=== PATIENT | male | born 1970 | race Caucasian/White ===

== ENCOUNTER 2025-02-20 09:55 | Outpatient (AMB) | payer OTHER, SELFPAY ==
--- OUTSIDE RECORDS SUMMARY | 2025-02-20 11:12 | XMS_ITS | Encounter Summary ---
Author Organization [facility] Address [address] [place] [address] Care Team Providers Care Animal Shelter Clerk Name Role Phone Aaron Hamilton MD Primary Care Provider Ari Aguillon MD Unavailable Zion Isbell MD Unavailable [phone] Zion Isbell MD Unavailable [phone] Encounter Details Date Type Department Care Team (Late st Contact Info) Description 09/25/2021 Scanned Document [address] [address] Social History Tobacco Use Types Packs/Day Years Used Date Smoking Tobacco: Never Smokeless Tobacco: Never Sex and Gender Information Value Date Recorded Sex Assigned at Not on file Legal Sex Male 4:37 AM EDT Gender Identity Not on file Sexual Orientation Not on file COVID-19 Exposure Response Date Recorded In the last month, have you been in contact with someone who was confirmed or suspected to have Coronavirus / COVID-19? No / Unsure 09/10/2021 8:14 AM EDT documented as of this encounter Plan of Treatment Not on file documented as of this encounter Visit Diagnoses Not on filedocumented in this encounter Care Teams Animal Shelter Clerk Relationship Specialty Start Date End Date Aaron Hamilton MD [address] [place] [address] PCP - General 09/04/21 Ari Aguillon MD [address] [place] [address] Cardiovascular Disease 12/14/21 Zion Isbell MD [address] [address] Cardiovascular Disease 03/10/22 Zion Isbell MD [address] [address] Primary Door Fitter Cardiovascular Disease 08/11/23 documented as of this encounter
--- OUTSIDE RECORDS SUMMARY | 2025-02-20 11:12 | XMS_ITS | Clinical Summary ---
Author Organization [address] [place] [address] [place] [phone] Phone Care Team Providers Care After School Program Assistant Name Role Phone [place] Dudley MD Primary Care Provider [phone] Allergies Active Allergy Reactions Criticality Noted Date Comments Gluten Nausea And Vomiting,Nausea Only Low 03/02/2024 Positive celiac dx Comment on above: Positive celiac dx Positive celiac dx Medications albuterol HFA (PROVENTIL HFA;VENTOLIN HFA) 108 (90 Base) MCG/ACT inhaler Inhale 2 puffs into the lungs 2 (two) times a day as needed. Active LORazepam (ATIVAN) 0.5 mg tablet Take 1 tablet (0.5 mg total) by mouth every 8 (eight) hours as needed. Active montelukast (SINGULAIR) 10 mg tablet Take 1 tablet (10 mg total) by mouth daily. Active multivitamin (MULTIPLE VITAMINS ORAL) Take 1 tablet by mouth daily. Active Active Problems Problem Noted Date Diagnosed Date Atrial fibrillation (CMS/HCC V24, CMS/[facility] V28) 0 03/02/2024 Celiac disease 03/02/2024 Heart palpitations 03/02/2024 Obesity 03/02/2024 Sleep apnea 03/02/2024 Immunizations Name Administration Dates Next Due SARS-COV-2 (COVID-19) Vaccine, Unspecified 12/16,11/18/2020 Surgical History Surgery Date Site/Laterality Comments ATRIAL ABLATION SURGERY 2021 PROCEDURE:ATRIAL ABLATION SURGERY NASAL POLYP SURGERY PROCEDURE:NASAL POLYP SURGERY Medical History Medical History Date Comments A-fib (CMS/HCC V24, [facility] V28) DX:A-fib ([facility]) Allergic DX:Allergic Asthma DX:Asthma EtOH dependence ([facility] V24 , [facility] V28) 06/20/2012 DX:EtOH dependence ([facility]);COM MENT:quit cold turkey Celiac disease DX:Celiac diseas e Social History Tobacco Use Types Packs/Day Years Used Date Smoking Tobacco: Never Smokeless Tobacco: Never Alcohol Use Standard Drinks/Week Comments Not Currently 0 (1 standard drink = 0.6 oz pur e alcohol) Sex and Gender Information Value Date Recorded Sex Assigned at Not on file Legal Sex Male 8:44 AM EST Gender Identity Not on file Sexual Orientation Not on file Obstetrics History Last Filed Vital Signs Vital Sign Reading Time Taken Comments Blood Pressure 122/94 10/25/2024 10:28 AM EDT Pulse 75 10/25/2024 10:28 AM EDT Temperature 35.7 C (96.3 F) 10/25/2024 10:28 AM EDT Respiratory Rate - - Oxygen Saturation 98% 10/25/2024 10:28 AM EDT Inhaled Oxygen Concentration - - Weight 116 kg (255 lb 9.6 oz) 10/25/2024 10:28 A M EDT Height 175.3 cm (5' 9 ) 02/29/2024 10:07 AM EDT Body Mass Index 37.75 02/29/2024 10:07 AM EDT Plan of Treatment Upcoming Encounters Date Type Department Care Team (Late st Contact Info) Description 03/06/2025 3:30 PM EDT Office Visit [address] [id number] [place] Dudley MD [address] [place] [address] Health Maintenance Due Date Last Done Comments DTaP,Tdap,and Td Vaccines (1 - Tdap) 1991 Hepatitis B Vaccines (1 of 3 - 19+ 3-dose series) 1991 Pneumococcal Vaccine: 50+ Years (1 of 1 - PCV) 2022 Zoster Vaccines (1 of 2) 2022 HIV Screening 03/02/2024 Social Influencers of Health Screening 03/02/2024 Depression Screening 06/20/2024 Colorectal Cancer Screening: Stool Based Tests (FOBT/FIT) 02/12/2025 02/13/2024, 02/13/2024 COVID-19 Vaccine (3 - 2024-2 6 season) 2025 12/16/2020, 11/18/2020 Influenza Vaccine (#1) 2025 Cholesterol Screening (Lipid Panel) 02/15/2029 02/16/2024, 02/14/2024 Hepatitis C Screening Completed 02/16/2024 , 02/14/2024 HIB Vaccines Aged Out No longer eligi ble based on patient's age to complete this topic HPV Vaccines Aged Out No longer eligi ble based on patient's age to complete this topic Hepatitis A Vaccines Aged Out No long er eligible based on patient's age to complete this topic IPV Vaccines Aged Out No longer eligi ble based on patient's age to complete this topic MMR Vaccines Aged Out No longer eligi ble based on patient's age to complete this topic Meningococcal ACWY Vaccine Aged Out N o longer eligible based on patient's age to complete this topic Meningococcal B Vaccine Aged Out No l onger eligible based on patient's age to complete this topic RSV Immunization Patients Under 20 months Aged Out No longer eligible b ased on patient's age to complete this topic Varicella Vaccines Aged Out No longer eligible based on patient's age to complete this topic Procedures Procedure Name Priority Date/Time Associated Diagnosis Comments HEPATITIS C SCREENING Routine 02/16/2024 LIPID PANEL Routine 02/16/2024 STOOL BASED TEST Routine 02/13/2024 from Last 3 Months or Most Recently Relevant to Health Maintenance Results * Hepatitis C Screening (02/16/2024) Hepatitis C Screening abstracted us Historical Provider HEALTH MAINTENANCE Final Result * (ABNORMAL) Lipid panel (02/16/2024) LDL/HDL Ratio 7(A) <=5 Triglycerides 205(A) <=150 mg/dL Cholesterol 242(A) <=200 mg/dL HDL 35(A) >=40 mg/dL LDL Cholesterol 170(A) <=100 mg/dL Blood Venous blood specimen / Unknown Historical Provider LAB BLOOD ORDERABLES Esperanza l Result * Stool Based Tests (FOBT/FIT) (02/13/2024) Colorectal Cancer Screening: Stool Based Tests normal, abstracted Historical Provider HEALTH MAINTENANCE Final Result from Last 3 Months or Most Recently Relevant to Health Maintenance Insurance JANEL CHRISTOPHER [id number] Care Teams After School Program Assistant Relationship Specialty Start Date End Date Trent Dudley MD [address] [address] PCP - General Family Medicine 09/18/24
--- OUTSIDE RECORDS SUMMARY | 2025-02-20 11:12 | XMS_ITS | Clinical Summary ---
Author Organization [facility] Address [address] [place] [address] Care Team Providers Care Highway Maintenance Technician Name Role Phone Aaron Hamilton MD Primary Care Provider [phone] Ari Aguillon MD Unavailable Zion Isbell MD Unavailable [phone] Zion Isbell MD Unavailable [phone] Allergies Active Allergy Reactions Criticality Noted Date Comments Gluten GI Intolerance/Nausea/Vomitin g Low 02/05/2022 Positive celiac dx Medications montelukast (SINGULAIR) 10 MG tablet Take 1 tablet (10 mg total) by mouth daily. 09/02/2021 Active LORazepam (ATIVAN) 0.5 MG tablet Take 1 tablet (0.5 mg total) by mouth 3 times daily (every 8 hours) as needed. Active albuterol (PROAIR RESPICLICK) 108 (90 Base) MCG/ACT inhaler Inhale 2 puffs 2 (two) times a day as needed for wheezing. Active Active Problems Problem Noted Date Diagnosed Date Heart palpitations 11/12/2021 Atrial fibrillation 09/10/2021 Obesity 09/10/2021 Sleep apnea 09/10/2021 Family History Medical History Relation Name Comments No Known Problems Father No Known Problems Mother Relation Name Status Comments Father Mother Social History Tobacco Use Types Packs/Day Years Used Date Smoking Tobacco: Never Smokeless Tobacco: Never Tobacco Cessation:Counseling Given: Not Answered Alcohol Use Standard Drinks/Week Comments Not Currently 0 (1 standard drink = 0.6 oz pur e alcohol) stopped in 2012 AUDIT-C Answer Date Recorded Q1: How often do you have a drink containing alcohol? Never 02/05/2022 Q2: How many drinks containi ng alcohol do you have on a typical day when you are drinking? Patient does not drink Q3: How often do you have si x or more drinks on one occasion? Never 02/05/2022 [facility] - Occupational Stress Questionnaire Answer Date Recorded Do you feel stress - tense, restless, nervous, or anxious, or unable to sleep at night because your mind is troubled all the time - these days? Not at all 11/25/2023 Physical Activity Answer Date Recorded On average, how many days pe r week do you engage in moderate to strenuous exercise (like a brisk walk)? 3 days 11/25/2023 On average, how many minutes do you exercise per day at this level? 50 min 11/25/2023 Sex and Gender Information Value Date Recorded Sex Assigned at Not on file Legal Sex Male 4:37 AM EDT Gender Identity Not on file Sexual Orientation Not on file Last Filed Vital Signs Vital Sign Reading Time Taken Comments Blood Pressure 140/98 11/25/2023 7:55 AM EDT Pulse 64 11/25/2023 7:55 AM EDT Temperature 36.3 C (97.4 F) 02/05/2022 3:15 PM EDT Respiratory Rate 16 11/12/2022 7:48 AM EDT Oxygen Saturation 97% 11/25/2023 7:55 AM EDT Inhaled Oxygen Concentration - - Weight 109 kg (241 lb) 11/25/2023 7:55 AM EDT Height 175.3 cm (5' 9 ) 11/25/2023 7:55 AM EDT Body Mass Index 35.59 11/25/2023 7:55 AM EDT Plan of Treatment Health Maintenance Due Date Last Done Comments Hepatitis C Virus Screening 1972 HIV Screening 1985 DTaP/Tdap/Td Vaccines (1 - Tdap) 1991 Hepatitis B Vaccines (1 of 3 - 19+ 3-dose series) 1991 Colonoscopy 2017 Pneumococcal Vaccines 50+ (1 of 1 - PCV) 2022 Zoster (Shingles) Vaccine (1 of 2) 2022 COVID-19 Vaccine ( season) 2024, 11/18/2020 Influenza Vaccine 01/18/2025 Insurance [employer] HMO Advance Directives * Full Code (Latest Code Status on File) Date Activated Date Inactivated Comments 02/05/2022 3:[address] Maintenance Technician Relationship Specialty Start Date End Date Aaron Hamilton MD [address] [place] [address] PCP - General 09/04/21 Ari Aguillon MD [address] [place] [address] Cardiovascular Disease 12/14/21 Zion Isbell MD [address] [place] [address] Cardiovascular Disease 03/10/22 Zion Isbell MD [address] [place], [place] [id number] Primary Lime Sludge Mixer Cardiovascular Disease 08/11/23
--- OUTSIDE RECORDS SUMMARY | 2025-02-20 11:12 | XMS_ITS | Encounter Summary ---
Author Organization [address] [address] Care Team Providers Care Structural Designer Name Role Phone Aaron Hamilton MD Primary Care Provider [phone] Ari Aguillon MD Unavailable Zion Isbell MD Unavailable [phone] Zion Isbell MD Unavailable [phone] Encounter Details Date Type Department Care Team (Late st Contact Info) Description 11/30/2021 Scanned Document [facility] [address] [place] [phone] Zion Isbell MD [address] [place] [address] [place] [address] Social History Tobacco Use Types Packs/Day Years Used Date Smoking Tobacco: Never Smokeless Tobacco: Never Sex and Gender Information Value Date Recorded Sex Assigned at Not on file Legal Sex Male 4:37 AM EDT Gender Identity Not on file Sexual Orientation Not on file COVID-19 Exposure Response Date Recorded In the last 10 days, have yo u been in contact with someone who was confirmed or suspected to have Coronavirus/COVID-19? No / Unsure 11/12/2021 7:59 AM EDT documented as of this encounter Plan of Treatment Not on file documented as of this encounter Visit Diagnoses Not on filedocumented in this encounter Care Teams Structural Designer Relationship Specialty Start Date End Date Aaron Hamilton MD [address] [address] PCP - General 09/04/21 Ari Aguillon MD [address] [place] [address] Cardiovascular Disease 12/14/21 Zion Isbell MD [address] [address] Cardiovascular Disease 03/10/22 Zion Isbell MD [address] [address] Primary Clinical Field Specialist Cardiovascular Disease 08/11/23 documented as of this encounter
--- OUTSIDE RECORDS SUMMARY | 2025-02-20 11:12 | XMS_ITS | Clinical Summary ---
Author Organization [facility] Address [address] [facility] [address] Care Team Providers Care Fixture Fabricator Repairer Name Role Phone Unavailable Primary Care Provider Unavailabl e Allergies Active Allergy Reactions Criticality Noted Date Comments Gluten GI intolerance,Nause a And Vomiting Low 02/05/2022 Positive celiac dx Comment on above: Positive celiac dx Medications montelukast (SINGULAIR) 10 mg tablet Take 10 mg by mouth in the morning. 09/02/2021 Active multivitamin with folic acid (THERAGRAN) 400 mcg tablet Take 1 tablet by mouth in the morning. Active albuterol HFA 90 mcg/actuation inhalerIndicati ons:Acute non-recurrent frontal sinusitis Inhale 2 puffs every 4 (four) hours as needed for wheezing. 18 each 08/05/2023 Active budesonide-form oteroL (Symbicort) 80-4.5 mcg/actuation inhalerIndicati ons:Acute non-recurrent frontal sinusitis Inhale 2 puffs in the morning and 2 puffs before bedtime. 10.2 each 08/05/2023 Active Active Problems No known active problems Social History Tobacco Use Types Packs/Day Years Used Date Smoking Tobacco: Never Smokeless Tobacco: Never Tobacco Cessation:Counseling Given: Not Answered Sex and Gender Information Value Date Recorded Sex Assigned at Not on file Legal Sex Male 12:46 PM EST Gender Identity Not on file Sexual Orientation Not on file Last Filed Vital Signs Vital Sign Reading Time Taken Comments Blood Pressure 129/89 08/05/2023 1:13 PM EST Pulse 73 08/05/2023 1:13 PM EST Temperature 36.2 C (97.1 F) 08/05/2023 1:13 PM EST Respiratory Rate - - Oxygen Saturation 95% 08/05/2023 1:13 PM EST Inhaled Oxygen Concentration - - Weight - - Height - - Body Mass Index - - Plan of Treatment Health Maintenance Due Date Last Done Comments CT Colonography 1972 Colonoscopy 1972 Colorectal Cancer Screening 1972 FIT-DNA (Cologuard) 1972 FIT 1972 FOBT 1972 Flex Sigmoidoscopy - 5y 1972 HIV Screening 1972 DTaP,Tdap,and Td Vaccines (1 - Tdap) 1990 Hepatitis C Screening 1990 Hepatitis B Vaccines (1 of 3 - 19+ 3-dose series) 1991 Pneumococcal Vaccine, 50+ Years (1 of 1 - PCV) 2022 Zoster Vaccines (1 of 2) 2022 COVID-19 Vaccine (3 - 2024-2 6 season) 2025 12/16/2020, 11/18/2020 Influenza Vaccine (#1) 2025 HPV Vaccines Aged Out No longer eligi ble based on patient's age to complete this topic Hepatitis A Vaccines Aged Out No long er eligible based on patient's age to complete this topic MMR Vaccines Aged Out No longer eligi ble based on patient's age to complete this topic Meningococcal Vaccine Aged Out No radha patricia eligible based on patient's age to complete this topic Insurance COUNTS INCLUDE 234 BEDS AT THE [facility] OPEN ACCESS
--- OUTSIDE RECORDS SUMMARY | 2025-02-20 11:12 | XMS_ITS | Clinical Summary ---
Author Organization [facility] Address [address] [place] [address] Care Team Providers Care Chicken And Fish Cleaner Name Role Phone Trent Dudley MD Primary Care Provider Santo lable Allergies Active Allergy Reactions Criticality Noted Date Comments Gluten Nausea Only,Nausea A nd Vomiting Low 02/05/2022 Positive celiac dx Comment on above: Positive celiac dx Positive celiac dx Medications Medication Sig Dispensed Refills Start Date End Date Status montelukast (SINGULAIR) 10 MG tablet Take 1 tablet (10 mg total) by mouth daily. 0 09/02/2021 Active Albuterol Sulfate 108 (90 Base) MCG/ACT AEPB Inhale 2 puffs into the lungs 2 (two) times a day as needed. 0 Active Multiple Vitamin (Quintabs) TABS Take 1 tablet by mouth daily. 0 Active LORazepam (ATIVAN) 0.5 MG tablet Take 1 tablet (0.5 mg total) by mouth every 8 (eight) hours as needed. 30 tablet 0 02/15/2024 Active Active Problems Problem Noted Date Diagnosed Date Celiac disease 02/13/2024 Heart palpitations 11/12/2021 02/13/2024 Atrial fibrillation 09/10/2021 02/13/2024 Obesity 09/10/2021 02/13/2024 Sleep apnea 09/10/2021 02/13/2024 Immunizations Name Administration Dates Next Due Covid-19, Unspecified formulation 12/16/2020,06/2020 Social History Tobacco Use Types Packs/Day Years Used Date Smoking Tobacco: Never Smokeless Tobacco: Never Tobacco Cessation:Counseling Given: Not Answered Alcohol Use Standard Drinks/Week Comments Not Currently 0 (1 standard drink = 0.6 oz pure alcohol) hx of heavy etoh use, quite cold turkey 2012 Sex and Gender Information Value Date Recorded Sex Assigned at Not on file Gender Identity Not on file Sexual Orientation Not on file Job Start Date Occupation Industry Not on file Not on file Not on file Last Filed Vital Signs Vital Sign Reading Time Taken Comments Blood Pressure 102/72 02/29/2024 10:07 AM EDT Pulse 79 02/29/2024 10:07 AM EDT Temperature 36.4 C (97.5 F) 02/13/2024 9:26 AM EDT Respiratory Rate - - Oxygen Saturation 97% 02/29/2024 10:07 AM EDT Inhaled Oxygen Concentration - - Weight 108.9 kg (240 lb) 02/29/2024 10:07 AM EDT Height 175.3 cm (5' 9 ) 02/29/2024 10:07 AM EDT Body Mass Index 35.44 02/29/2024 10:07 AM EDT Plan of Treatment Health Maintenance Due Date Last Done Comments Hepatitis B Vaccines (1 of 3 - 3-dose series) 1972 Depression Screening 1984 BMI Counseling 1990 Preventative Health Evaluation 1990 DTap / Tdap / Td (1 - Tdap) 1991 Shingrix-Zoster Vaccine (1 o f 2) 2022 Colon Cancer Screening (Annual FOBT) 02/12/2025 02/13/2024 COVID-19 Vaccine (3 - 2024-2 6 season) 2025 12/16/2020, 11/18/2020 Influenza Vaccine (#1) 2025 Colon Cancer Screening (Colonoscopy) 03/14/2034 03/14/2024 Hepatitis C Screening Completed 02/14/2024 Pneumococcal Vaccine Aged Out No long er eligible based on patient's age to complete this topic RSV Ped < 20 months Aged Out No longe r eligible based on patient's age to complete this topic Care Teams Chicken And Fish Cleaner Relationship Specialty Start Date End Date Trent Dudley MD PCP - General Family Medicine 02/13/24
--- OUTSIDE RECORDS SUMMARY | 2025-02-20 11:12 | XMS_ITS | Encounter Summary ---
Author Organization [facility] Address [address] [place] [address] Care Team Providers Care Telephone Switchboard Operator Name Role Phone Aaron Hamilton MD Primary Care Provider [phone] Ari Aguillon MD Unavailable Zion Isbell MD Unavailable [phone] Zion Isbell MD Unavailable [phone] Encounter Details Date Type Department Care Team (Late st Contact Info) Description 04/30/[address] [facility] Heart & Vascular [place] - Electrophysiology [address] [place] [address] Ari Aguillon MD [address] [place], [place] [id number] Social History Tobacco Use Types Packs/Day Years [...] more drinks on one occasion? Never 02/05/2022 Sex and Gender Information Value Date Recorded Sex Assigned at Not on file Legal Sex Male 4:37 AM EDT Gender Identity Not on file Sexual Orientation Not on file COVID-19 Exposure Response Date Recorded In the last 10 days, have yo u been in contact with someone who was confirmed or suspected to have Coronavirus/COVID-19? No / Unsure 04/30/2022 7:45 AM EST documented as of this encounter Plan of Treatment Not on file documented as of this encounter Visit Diagnoses Not on filedocumented in this encounter Care Teams Telephone Switchboard Operator Relationship Specialty Start Date End Date Aaron Hamilton MD [address] [place] [address] PCP - General 09/04/21 Ari Aguillon MD [address] [place] [address] Cardiovascular Disease 12/14/21 Zion Isbell MD [address] [address] Cardiovascular Disease 03/10/22 Zion Isbell MD [address] [address] Primary Gas Turbine Mechanic Cardiovascular Disease 08/11/23 documented as of this encounter
--- OUTSIDE RECORDS SUMMARY | 2025-02-20 11:12 | XMS_ITS | Encounter Summary ---
Author Organization [facility] Address [address] [place] [address] Care Team Providers Care Plant Taxonomist Name Role Phone Aaron Hamilton MD Primary Care Provider [phone] Ari Aguillon MD Unavailable Zion Isbell MD Unavailable [phone] Zion Isbell MD Unavailable [phone] Encounter Details Date Type Department Care Team (Late st Contact Info) Description 02/05/2022 Prep for Surgery [facility] Heart & Vascular [place] - Electrophysiology [address] [facility] [address] [place] [address] Lisa Sosa, GAS LEAK TESTER [address] [address] Social History Tobacco Use Types Packs/Day Years [...] suspected to have Coronavirus/COVID-19? No / Unsure 02/05/2022 11:00 AM EDT documented as of this encounter Functional Status * Audit-C Score Answer Date of Assessment Author 0 02/05/2022 11:00 AM EDT Layne Abdi RN * Question Answer Date of Assessment Author Q1: How often do you have a drink containing alcohol? Never 02/05/2022 11:00 AM EDT Layne Fagan RN Q2: How many drinks containing alcohol do you have on a typical day when you are drinking? Patient does not drink 02/05/2022 11:00 AM EDT Layne Fagan RN Q3: How often do you have six or more drinks on one occasion? Never 02/05/2022 11:00 AM EDT Layne Fagan RN documented as of this encounter Plan of Treatment Not on file documented as of this encounter Visit Diagnoses Not on filedocumented in this encounter Care Teams Plant Taxonomist Relationship Specialty Start Date End Date Aaron Hamilton MD [address] [place] [address] PCP - General 09/04/21 Ari Aguillon MD [address] [place] [address] Cardiovascular Disease 12/14/21 Zion Isbell MD [address] [place] [address] Cardiovascular Disease 03/10/22 Zion Isbell MD [address] [place] [address] Primary Timekeeper Supervisor Cardiovascular Disease 08/11/23 documented as of this encounter
--- OUTSIDE RECORDS SUMMARY | 2025-02-20 11:12 | XMS_ITS | Encounter Summary ---
Author Organization [facility] Address [address] [place] [address] Care Team Providers Care Operations Project Manager Name Role Phone Aaron Hamilton MD Primary Care Provider [phone] Ari Aguillon MD Unavailable Zion Isbell MD Unavailable [phone] Zion Isbell MD Unavailable [phone] Encounter Details Date Type Department Care Team (Late st Contact Info) Description 02/03/2022 Telephone [facility] Heart & Vascular [place] - Electrophysiology [address] [place] [address] Ari Aguillon MD [address] [place], [place] [id number] Social History Tobacco Use Types Packs/Day Years Used Date Smoking Tobacco: Never Smokeless Tobacco: Never Alcohol Use Standard Drinks/Week Comments Not Currently 0 (1 standard drink = 0.6 oz pur e alcohol) AUDIT-C Answer Date Recorded Q1: How often [...] Fagan RN documented as of this encounter Miscellaneous Notes * Telephone Encounter - Meliton Grimaldo APRN - 02/03/2022 3:57 PM EDT I spoke to Major and clarified the visitor policy for outpatient procedures. documented in this encounter Plan of Treatment Not on file documented as of this encounter Visit Diagnoses Not on filedocumented in this encounter Care Teams Operations Project Manager Relationship Specialty Start Date End Date Aaron Hamilton MD [address] [place] [address] PCP - General 09/04/21 Ari Aguillon MD [address] [place] [address] Cardiovascular Disease 12/14/21 Zion Isbell MD [address] [address] Cardiovascular Disease 03/10/22 Zion Isbell MD [address] [place] [address] Primary Tape Machine Tailer Cardiovascular Disease 08/11/23 documented as of this encounter
--- OUTSIDE RECORDS SUMMARY | 2025-02-20 11:12 | XMS_ITS ---
Author Name [facility] Organization Unknown Results Test Name/Text Value Interpretation Date Range Source Squamous #/area UrnS HPF NONE SEEN Normal 04/05/2024 - [facility] Glucose Ur Ql Strip NEGATIVE Normal 04/05/2024 - [facility] Bilirub Ur Ql Strip NEGATIVE Normal 04/05/2024 - [facility] WBC #/area UrnS HPF NONE SEEN Normal 04/05/2024 - [facility] Sp Gr Ur Strip 1.006 Normal 04/05/2024 1.001 - 1.035 [facility] Nitrite Ur Ql Strip NEGATIVE Normal 04/05/2024 - [facility] Appearance Ur CLEAR Normal 04/05/2024 - [facility] Color Ur YELLOW Normal 04/05/2024 - [facility] Hgb Ur Ql Strip NEGATIVE Normal 04/05/2024 - [facility] Prot Ur Ql Strip NEGATIVE Normal 04/05/2024 - [facility] pH Ur Strip 6.0 Normal 04/05/2024 5 - 8 [facility] Bacteria #/area UrnS HPF NONE SEEN Normal 04/05/2024 - [facility] RBC #/area UrnS HPF NONE SEEN Normal 04/05/2024 - [facility] Leukocyte esterase Ur Ql Strip NEGATIVE Normal 04/05/2024 - [facility] Ketones Ur Ql Strip NEGATIVE Normal 04/05/2024 - [facility] Bacteria Ur Cult Normal 04/05/2024 [facility] Hyaline Casts #/area UrnS LPF NONE SEEN Normal 04/05/2024 - [facility] tTG IgA Ser-aCnc 10.2 U/mL Normal 04/05/2024 [facility] Laboratory comment Report Normal 04/05/2024 [facility] IgA SerPl-mCnc 150.0 mg/dL Normal 04/05/2024 47 - 310 [facility] INFLUENZA B PCR (PANTHER) Not Detected Normal 08/05/2023 - [facility] RSV PCR ([facility]ANTHER) Not Detected Normal 08/05/2023 - [facility] INFLUENZA A PCR ([facility]ANTHER) Not Detected Normal 08/05/2023 - [facility] SARS-COV-2 PCR (Filmzu) Negative Normal 08/05/2023 [facility] History of Medication Use Medication Directions Dispensed Refills Start Date End Date Stat us amoxicillin-pot clavulanate (AUGMENTIN) 875-125 mg per tablet Take 1 tablet by mouth in the morning and 1 tablet before bedtime. Do all this for 7 days. 08/05/2023 08/13/2023 active budesonide-formotero L (Symbicort) 80-4.5 mcg/actuation inhaler Inhale 2 puffs in the morning and 2 puffs before bedtime. 08/05/2023 active verapamil (VERELAN) 100 MG 24 hr capsule Take 1 capsule (100 mg total) by mouth nightly. Swallow whole. Do not chew or crush. 01/19/2022 11/10/2022 aborted albuterol sulfate 90 mcg/actuation aerosol powdr breath activated Inhale 2 puffs 2 times daily as needed. 08/05/2023 aborted albuterol (PROAIR RESPICLICK) 108 (90 Base) MCG/ACT inhaler Inhale 2 puffs 2 (two) times a day as needed for wheezing. active albuterol HFA (PROVENTIL HFA;VENTOLIN HFA) 108 (90 Base) MCG/ACT inhaler Inhale 2 puffs into the lungs 2 (two) times a day as needed. active LORazepam (ATIVAN) 0.5 mg tablet Take 1 tablet (0.5 mg total) by mouth every 8 (eight) hours as needed. active LORazepam (ATIVAN) 0.5 MG tablet Take 1 tablet (0.5 mg total) by mouth 3 times daily (every 8 hours) as needed. active montelukast (SINGULAIR) 10 mg tablet Take 1 tablet (10 mg total) by mouth daily. active multivitamin (MULTIPLE VITAMINS ORAL) Take 1 tablet by mouth daily. active multivitamin with folic acid (THERAGRAN) 400 mcg tablet Take 1 tablet by mouth in the morning. active ramipril (ALTACE) 10 MG capsule Take 10 mg by mouth daily. active Allergies Allergen Reaction Severity Comment Documented Date Source Statu s GLUTEN GI INTOLERANCE/NAUSEA/V OMITINGNAUSEA ONLYNAUSEA AND VOMITING Positive celiac dx 02/05/2022 CCT active Problems Problem Status Onset Date Problem Type Date of Resolution Source Celiac disease active 2024-02-13 ProblemAct [facility]TT [facility] Right foot pain active EncounterDiagnosisAct [facility] Celiac disease active 2024-03-02 Problem[address] [facility] Heart palpitations active 2024-03-02 ProblemAct [facility] Puncture wound active EncounterDiagnosisAct [facility] Obesity active 2024-03-02 ProblemAct [facility] Atrial fibrillation (CMS/HCC V24, CMS/HCC V28) active 2024-03-02 ProblemAct [facility] Sleep apnea active 2024-03-02 [address] [facility] KAITLIN Atrial fibrillation active 2021-09-10 ProblemAct [facility] Obesity active 2021-09-10 ProblemAct [facility] Class 2 severe obesity due to excess calories with serious comorbidity in adult, unspecified BMI (HCC) active EncounterDiagnosisAct [facility] Paroxysmal atrial fibrillation (HCC) active EncounterDiagnosisAct [facility] Heart palpitations active 2021-11-12 ProblemAct [facility] Sleep apnea active 2021-09-10 ProblemAct [facility] Acute non-recurrent frontal sinusitis active EncounterDiagnosisAct [facility] Bronchitis active EncounterDiagnosisAct [facility] Immunizations Vaccine Date Source Lot Number Status SARS-COV-2 (COVID-19) Vaccine, Unspecified 12/16/2020 [facility] [id number] completed SARS-COV-2 (COVID-19) Vaccine, Unspecified 11/18/2020 [facility] [id number] completed Encounters Encounter Type Encounter Reason Primary Diagnosis Location Date Ambulatory Follow-up Pain in right foot [facility] 10/25/2024 Ambulatory Paroxysmal atrial fibrillation Paroxysmal atrial fibrillation [facility] 11/25/2023 Ambulatory Acute frontal sinusitis, unspecified Acute frontal sinusitis, unspecified [facility] 08/05/2023 Ambulatory Unspecified atrial fibrillation Unspecified atrial fibrillation [facility] 02/03/2023 Ambulatory Unspecified atrial fibrillation Unspecified atrial fibrillation [facility] 01/03/2023 Ambulatory Unspecified atri al fibrillation [facility] 11/12/2022 Ambulatory Male infertility , unspecified [facility] 11/10/2022 Ambulatory Paroxysmal atria l fibrillation [facility] 04/30/2022 Ambulatory Paroxysmal atria l fibrillation [facility] 03/10/2022 Ambulatory Unspecified atri al fibrillation [facility] 02/05/2022 Ambulatory Contact with and (suspected) exposure to covid-19 [facility] 02/03/2022 Ambulatory Paroxysmal atria l fibrillation [facility] 01/07/2022 Ambulatory Obstructive slee p apnea (adult) (pediatric) [facility] 01/04/2022 Emergency Palpitations [facility] 12/25/2021 Emergency Palpitations [facility] 12/22/2021 Ambulatory Paroxysmal atria l fibrillation [facility] 12/09/2021 Ambulatory [facility] 11/13/2021 Ambulatory Paroxysmal atria l fibrillation [facility] 11/12/2021 Emergency [facility] 10/16/2021 Ambulatory Unspecified atri al fibrillation [facility] 10/16/2021 Ambulatory [facility] 10/12/2021 Ambulatory [facility] 09/10/2021 Ambulatory Unspecified atri al fibrillation [facility] 09/10/2021 Emergency Unspecified atri al fibrillation [facility] 09/04/2021 Care Team Organization Name Specialty Phone Email Start Date End [facility]2024 [facility], Primary Care 10/25/2024 [facility] 08/05/2023 [facility] 04/22/2023 024 [facility] DOMINGA HAMILTON Primary Care 04/30/2022 09/05/2024 [facility] Aaron Hamilton Primary Care 09/04/2021 04/30/2022
== END 2025-02-20 10:24 | disposition home or self-care (01) ==
LOC: HO.HMGAL 09:55
PROVIDERS: PCP Internal Medicine; Visit Provider Registered Nurse Emergency
DX: J30.89 Other allergic rhinitis (principal)
CPT/HCPCS: 95117; 95165

== ENCOUNTER 2025-03-25 11:54 | Outpatient (AMB) | payer OTHER, SELFPAY ==
--- OUTSIDE RECORDS SUMMARY | 2025-03-25 14:26 | XMS_ITS | Encounter Summary ---
Author Organization [facility] Address [address] [place] [address] Care Team Providers Care First Dyer Name Role Phone Aaron Hamilton MD Primary Care Provider [phone] Ari Aguillon MD Unavailable Zion Isbell MD Unavailable [phone] Zion Isbell MD Unavailable [phone] Encounter Details Date Type Department Care Team (Late st Contact Info) Description 02/03/2022 Telephone [facility] Heart & Vascular [place] - Electrophysiology [address] [place] [address] Ari Aguillon MD [address] [place], [place] [id number] Social History Tobacco Use Types Packs/Day Years [...] on filedocumented in this encounter Care Teams First Dyer Relationship Specialty Start Date End Date Aaron Hamilton MD [address] [place] [address] PCP - General 09/04/21 Ari Aguillon MD [address] [place] [address] Cardiovascular Disease 12/14/21 Zion Isbell MD [address] [address] Cardiovascular Disease 03/10/22 Zion Isbell MD [address] [place] [address] Primary Behavioral Health Case Manager Cardiovascular Disease 08/11/23 documented as of this encounter
--- OUTSIDE RECORDS SUMMARY | 2025-03-25 14:26 | XMS_ITS | Encounter Summary ---
Author Organization [address] [address] Care Team Providers Care Power Press Tender Name Role Phone Aaron Hamilton MD Primary Care Provider [phone] Ari Aguillon MD Unavailable Zion Isbell MD Unavailable [phone] Zion Isbell MD Unavailable [phone] Encounter Details Date Type Department Care Team (Late st Contact Info) Description 11/30/2021 Scanned Document [facility] Cardiology [address] [place] [address] Zion Isbell MD [address] [place] [address] [place] [address] Social History Tobacco Use Types Packs/Day Years [...] on filedocumented in this encounter Care Teams Power Press Tender Relationship Specialty Start Date End Date Aaron Hamilton MD [address] [address] PCP - General 09/04/21 Ari Aguillon MD [address] [place] [address] Cardiovascular Disease 12/14/21 Zion Isbell MD [address] [address] Cardiovascular Disease 03/10/22 Zion Isbell MD [address] [address] Primary Microfabrication Engineer Manager Cardiovascular Disease 08/11/23 documented as of this encounter
--- OUTSIDE RECORDS SUMMARY | 2025-03-25 14:26 | XMS_ITS | Encounter Summary ---
Author Organization [facility] Address [address] [place] [address] Care Team Providers Care Rigging Worker Name Role Phone Aaron Hamilton MD Primary Care Provider + [phone] Ari Aguillon MD Unavailable Zion Isbell MD Unavailable [phone] Zion Isbell MD Unavailable [phone] Encounter Details Date Type Department Care Team (Late st Contact Info) Description 09/25/2021 Scanned Document [address] [address] Social History Tobacco Use Types Packs/Day Years [...] on filedocumented in this encounter Care Teams Rigging Worker Relationship Specialty Start Date End Date Aaron Hamilton MD [address] [place] [address] PCP - General 09/04/21 Ari Aguillon MD [address] [place] [address] Cardiovascular Disease 12/14/21 Zion Isbell MD [address] [address] Cardiovascular Disease 03/10/22 Zion Isbell MD [address] [address] Primary Powder Press Operator Cardiovascular Disease 08/11/23 documented as of this encounter
--- OUTSIDE RECORDS SUMMARY | 2025-03-25 14:26 | XMS_ITS | Clinical Summary ---
Author Organization [facility] Address [address] [place] [address] Care Team Providers Care Metal Or Wood Blocker Name Role Phone Unavailable Primary Care Provider [...] patient's age to complete this topic Insurance [facility] OPEN ACCESS
--- OUTSIDE RECORDS SUMMARY | 2025-03-25 14:26 | XMS_ITS | Encounter Summary ---
Author Organization [facility] Address [address] [place] [address] Care Team Providers Care Superintendent Institution Name Role Phone Aaron Hamilton MD Primary Care Provider [phone] Ari Aguillon MD Unavailable Zion Isbell MD Unavailable [phone] Zion Isbell MD Unavailable [phone] Encounter Details Date Type Department Care Team (Late st Contact Info) Description 04/30/[address] [facility] Heart & Vascular [place] - Electrophysiology [address] [place] [address] Ari Aguillon MD [address] [place], [place] [id number] Social History Tobacco Use Types Packs/Day Years [...] on filedocumented in this encounter Care Teams Superintendent Institution Relationship Specialty Start Date End Date Aaron Hamilton MD [address] [place] [address] PCP - General 09/04/21 Ari Aguillon MD [address] [place] [address] Cardiovascular Disease 12/14/21 Zion Isbell MD [address] [address] Cardiovascular Disease 03/10/22 Zion Isbell MD [address] [address] Primary Eyeletter Cardiovascular Disease 08/11/23 documented as of this encounter
--- OUTSIDE RECORDS SUMMARY | 2025-03-25 14:26 | XMS_ITS | Clinical Summary ---
Author Organization [facility] Address [address] [place] [address] Care Team Providers Care Applications Project Manager Name Role Phone Aaron Hamilton MD Primary Care Provider [phone]- [phone] Ari Aguillon MD Unavailable Zion Isbell MD Unavailable [phone] Zion Isbell MD Unavailable [phone] Allergies Active Allergy Reactions Criticality Noted Date [...] more drinks on one occasion? Never 02/05/2022 [facility] - Occupational Stress [...] Zoster (Shingles) Vaccine (1 of 2) 2022 Influenza Vaccine 01/18/2025 COVID-19 Vaccine ( season) 2025, 11/18/2020 Insurance [employer] HMO Advance Directives * Full Code (Latest Code Status on File) Date Activated Date Inactivated Comments 02/05/2022 3:02 PM Care Teams Applications Project Manager Relationship Specialty Start Date End Date Aaron Hamilton MD [address] [place] [address] PCP - General 09/04/21 Ari Aguillon MD [address] [place] [address] Cardiovascular Disease 12/14/21 Zion Isbell MD [address] [place] [address] Cardiovascular Disease 03/10/22 Zion Isbell MD [address] [place], [place] [id number] Primary Orchard Worker Cardiovascular Disease 08/11/23
--- OUTSIDE RECORDS SUMMARY | 2025-03-25 14:26 | XMS_ITS | Clinical Summary ---
Author Organization [facility] Address [address] [place] [address] Care Team Providers Care Satellite Communications Operator Name Role Phone Trent Dudley MD Primary [...] age to complete this topic Care Teams Satellite Communications Operator Relationship Specialty Start Date End Date Trent Dudley MD PCP - General Family Medicine 02/13/24
--- OUTSIDE RECORDS SUMMARY | 2025-03-25 14:26 | XMS_ITS | Clinical Summary ---
Author Organization [address] [place] [address] [place] [phone] Phone Care Team Providers Care Nurse Ob Name Role Phone Trent Dudley MD Primary Care Provider [phone] Allergies No known active allergies Medications albuterol HFA (PROVENTIL HFA;VENTOLIN HFA) 108 (90 Base) MCG/ACT inhaler Inhale 2 puffs into the lungs 2 (two) times a day as needed. Active montelukast (SINGULAIR) 10 mg tablet Take 1 tablet (10 mg total) by mouth daily. Active multivitamin (MULTIPLE VITAMINS ORAL) Take 1 tablet by mouth daily. Active LORazepam (ATIVAN) 0.5 mg tablet Take 1 tablet (0.5 mg total) by mouth every 8 (eight) hours as needed.Take 30 tablet 5 Active LORazepam (ATIVAN) 0.5 mg tablet Take 1 tablet (0.5 mg total) by mouth every 8 (eight) hours as needed. 03/20/20 25 Discontinu ed(Reorder ) Active Problems Problem Noted Date Diagnosed Date BMI 39.0-39.9,adult 03/06/2025 Atrial fibrillation (CMS/HCC V24, CMS/HCC V28) 0 03/02/2024 Celiac disease 03/02/2024 Heart palpitations 03/02/2024 Obesity 03/02/2024 Sleep apnea 03/02/2024 Encounters Date Type Department Care Team Description 03/06/2025 3:30 PM EDT Office Visit [facility] [address] [place] [phone] Trent Dudley MD Elevated blood pressure reading (Primary Dx); Physical exam from Last 3 Months Immunizations Immunization Administration Dates Next Due Moderna SARS-CoV-2 COVID-19, mRNA, LNP-S, preservative free 12/16/2020,11/18/2020 SARS-COV-2 (COVID-19) Vaccine, Unspecified 12/16,11/18/2020 Surgical History Surgery Date Site/Laterality Comments ATRIAL ABLATION SURGERY 2021 PROCEDURE:ATRIAL ABLATION SURGERY NASAL POLYP SURGERY PROCEDURE:NASAL POLYP SURGERY Medical History Medical History Date Comments A-fib (CMS/[facility] V24, CMS/[facility] V28) DX:A-fib ([facility]) Allergic DX:Allergic Asthma DX:Asthma EtOH dependence (CMS/[facility] V24 , [facility] V28) 06/20/2012 DX:EtOH dependence ([facility]);COM MENT:quit cold turkey Celiac disease repeat testing i n 2023 showed no signs of celiac disease Family History Medical History Relation Name Comments Hyperlipidemia Brother Hypertension Brother Cancer Father Diabetes Father Heart disease Father Hyperlipidemia Father Hypertension Father Stroke Father Diabetes Mother Ovarian cancer Mother Relation Name Status Comments Brother Alive Father (Age 80) Mother (Age 45) Social History Tobacco Use Types Packs/Day Years Used Date Smoking Tobacco: Never Smokeless Tobacco: Never Tobacco Cessation:Counseling Given: Not Answered Alcohol Use Standard Drinks/Week Comments Not Currently 0 (1 standard drink = 0.6 oz pure alcohol) 2012 quit, prior heavy etoh use Sex and Gender Information Value Date Recorded Sex Assigned at Not on file Legal Sex Male 8:44 AM EST Gender Identity Not on file Sexual Orientation Not on file Obstetrics History Last Filed Vital Signs Vital Sign Reading Time Taken Comments Blood Pressure 136/94 03/06/2025 4:33 PM EDT Pulse 88 03/06/2025 3:27 PM EDT Temperature 36.3 C (97.3 F) 03/06/2025 3:27 PM EDT Respiratory Rate 17 03/06/2025 3:27 PM EDT Oxygen Saturation 96% 03/06/2025 3:27 PM EDT Inhaled Oxygen Concentration - - Weight 120 kg (265 lb) 03/06/2025 3:27 PM EDT Height 175.3 cm (5' 9 ) 03/06/2025 3:27 PM EDT Body Mass Index 39.13 03/06/2025 3:27 PM EDT Plan of Treatment Upcoming Encounters Date Type Department Care Team (Late st Contact Info) Description 04/29/2025 10:00 AM EST Office Visit [facility] [address] [facility] [address] [place] [address] Trent Dudley MD [address] [facility] [address] [place] [address] Health Maintenance Due Date Last Done Comments DTaP,Tdap,and Td Vaccines (1 - Tdap) 1991 Hepatitis B Vaccines (1 of 3 - 19+ 3-dose series) 1991 HIV Screening 03/02/2024 Social Influencers of Health Screening 03/02/2024 Cholesterol Screening (Lipid Panel) 03/08/2030 03/08/2025, 02/16/2024, 02/14/2024 Colorectal Cancer Screening: Colonoscopy 02/19/2034 02/20/2024, 02/20/2024 RSV Immunization Adult Patients (1 - 1-dose 75+ series) 2047 COVID-19 Vaccine Discontinued 12/16/2020, , 11/18/2020, Additional history exists Colorectal Cancer Screening: Stool Based Tests (FOBT/FIT) Discontinued 02/13/2024, 02/13/2024 Hepatitis C Screening Completed 02/16/2024, 024 Depression Screening Completed 03/06/2025 HIB Vaccines Aged Out No longer eligi [...] on patient's age to complete this topic Influenza Vaccine Discontinued MMR Vaccines Aged Out No longer eligi ble based on patient's age to complete this topic Meningococcal ACWY Vaccine Aged Out N o longer eligible based on patient's age to complete this topic Meningococcal B Vaccine Aged Out No l onger eligible based on patient's age to complete this topic Pneumococcal Vaccine: 50+ Years Discontinued RSV Immunization Patients Under 20 months Aged Out No longer eligible based on patient's age to complete this topic Varicella Vaccines Aged Out No longer eligible based on patient's age to complete this topic Zoster Vaccines Discontinued Procedures Procedure Name Priority Date/Time Associated Diagnosis Comments THYROID STIMULATING HORMONE WITH REFLEX FREE T4 Routine 03/08/2025 11:09 AM EDT Elevated blood pressure reading Physical exam BASIC METABOLIC PANEL Routine 03/08/2025 11:09 AM EDT Elevated blood pressure reading Physical exam LIPID PANEL WITH REFLEX TO DIRECT LDL Routine 03/08/2025 11:09 AM EDT Elevated blood pressure reading Physical exam HEMOGLOBIN A1C Routine 03/08/2025 11:09 AM EDT Elevated blood pressure reading Physical exam HM HEPATITIS C SCREENING Routine 02/16/2024 HM STOOL BASED TEST Routine 02/13/2024 from Last 3 Months or Most Recently Relevant to Health Maintenance Results * (ABNORMAL) Lipid panel with reflex to direct LDL (03/08/2025 11:09 AM EDT) Cholesterol Total 224(H) <200 mg/dL [facility] HDL Cholesterol 38(L) > OR = 40 mg/dL [facility] Triglycerides 156(H) <150 mg/dL [facility] LDL Cholesterol 157(H) mg/dL (calc) [facility] Comment: Reference range: <100 Desirable range <100 mg/dL for primary prevention; <70 mg/dL for patients with CHD or diabetic patients with > or = 2 CHD risk factors. LDL-C is now calculated using the Suresh calculation, which is a validated novel method providing better accuracy than the Friedewald equation in the estimation of LDL-C. Dillon CHAVARRIA et al. POONAM. 2013;310(19): 8492-2896 (http://education.FireScope/faq/WET626) Chol/HDLC Ratio 5.9(H) <5.0 (calc) [facility] Non HDL Cholesterol 186(H) <130 mg/dL (calc) [facility] Comment: For patients with diabetes plus 1 major ASCVD risk factor, treating to a non-HDL-C goal of <100 mg/dL (LDL-C of <70 mg/dL) is considered a therapeutic option. Blood Venous blood specimen / Unknown 03/08/2025 11:09 AM EDT 03/08/2025 11:09 AM EDT [employer] ([place]) - 03/09/2025 9:36 AM EDT FASTING:YES FASTING: YES Trent Dudley MD LAB BLOOD ORDERABLES Final Re sult Performing Organization Address [facility] Co de Phone Number [employer] [facility] [address] [place] [phone] * Thyroid stimulating hormone with reflex free T4 (03/08/2025 11:09 AM EDT) Thyroid Stimulating Hormone (Reflex FT4) 2.71 0.40 - 4.50 mIU/L [facility] Blood Venous blood specimen / Unknown 03/08/2025 11:09 AM EDT 03/08/2025 11:09 AM EDT [employer] ([facility]) - 03/09/2025 9:36 AM EDT FASTING:YES FASTING: YES Trent Dudley MD LAB BLOOD ORDERABLES Final Re sult Performing Organization Address [facility] Co de Phone Number [employer] [facility] [address] [place] [phone] * Hemoglobin A1c (03/08/2025 11:09 AM EDT) Hemoglobin A1C 5.5 <5.7 % [facility] Comment: For the purpose of screening for the presence of diabetes: <5.7% Consistent with the absence of diabetes 5.7-6.4% Consistent with increased risk for diabetes (prediabetes) > or =6.5% Consistent with diabetes This assay result is consistent with a decreased risk of diabetes. Currently, no consensus exists regarding use of hemoglobin A1c for diagnosis of diabetes in children. According to [place] Diabetes Association (ADA) guidelines, hemoglobin A1c <7.0% represents optimal control in non- diabetic patients. Different metrics may apply to specific patient populations. Standards of Medical Care in Diabetes(ADA). Blood Venous blood specimen / Unknown 03/08/2025 11:09 AM EDT 03/08/2025 11:09 AM EDT Narrative [facility] ([place]) - 03/09/2025 9:36 AM EDT FASTING:YES FASTING: YES us Trent Dudley MD LAB BLOOD ORDERABLES Final Re sult [facility]) [facility] [address] [place] [phone] * Basic metabolic panel (03/08/2025 11:09 AM EDT) [facility] Glucose 86 65 - 99 mg/dL [facility] Comment: Fasting reference interval Urea Nitrogen (BUN) 16 7 - 25 mg/dL [facility] Creatinine 1.05 0.70 - 1.30 mg/dL [facility] eGFR 85 > OR = 60 mL/min/1. 73m2 [facility] BUN/Creatinine Ratio SEE NOTE: 6 - 22 (calc) [facility] Comment: Not Reported: BUN and Creatinine are within reference range. Sodium 139 135 - 146 mmol/L [facility] Potassium 4.3 3.5 - 5.3 mmol/L [facility] Chloride 106 98 - 110 mmol/L [facility] Carbon Dioxide 23 20 - 32 mmol/L [facility] Calcium 9.0 8.6 - 10.3 mg/dL [facility] Blood Venous blood specimen / Unknown 03/08/2025 11:09 AM EDT 03/08/2025 11:09 AM EDT Narrative [facility] ([place]) - 03/09/2025 9:36 AM EDT FASTING:YES FASTING: YES us Trent Dudley MD LAB BLOOD ORDERABLES Final Re sult [facility] ([place]) [employer] [address] [place] [phone] * Hepatitis C Screening (02/16/2024) [facility] Hepatitis C Screening abstracted Historical Provider HEALTH MAINTENANCE Final Result * Stool Based Tests (FOBT/FIT) (02/13/2024) [facility] Colorectal Cancer Screening: Stool Based Tests normal, abstracted Historical Provider HEALTH MAINTENANCE Final Result from Last 3 Months or Most Recently Relevant to Health Maintenance Insurance Care Teams Nurse Ob Relationship Specialty Start Date End Date Trent Dudley MD [address] [place] [phone] PCP - General Family Medicine 09/18/24
--- OUTSIDE RECORDS SUMMARY | 2025-03-25 14:26 | XMS_ITS | Encounter Summary ---
Author Organization [facility] Address [address] [place] [address] Care Team Providers Care Clinical Nurse Occupational Medicine Name Role Phone Aaron Hamilton MD Primary Care Provider [phone] Ari Aguillon MD Unavailable Zion Isbell MD Unavailable [phone] Zion Isbell MD Unavailable [phone] Encounter Details Date Type Department Care Team (Late st Contact Info) Description 02/05/2022 Prep for Surgery [facility] [place] - Electrophysiology [address] [facility] [address] [place] [address] Lisa Sosa, ELECTROTYPER [address] [address] Social History Tobacco Use Types [...] on filedocumented in this encounter Care Teams Clinical Nurse Occupational Medicine Relationship Specialty Start Date End Date Aaron Hamilton MD [address] [place] [address] PCP - General 09/04/21 Ari Aguillon MD [address] [place] [phone] Cardiovascular Disease 12/14/21 Zion Isbell MD [address] [place] [phone] Cardiovascular Disease 03/10/22 Zion Isbell MD [address] [place] [phone] Primary Co[place]apper Cardiovascular Disease 08/11/23 documented as of this encounter
== END 2025-03-25 12:01 | disposition home or self-care (01) ==
LOC: HO.HMGAL 11:54
PROVIDERS: PCP Student in an Organized Health Care Education/Training Program; Visit Provider Registered Nurse Emergency
DX: J30.89 Other allergic rhinitis (principal)
CPT/HCPCS: 95117; 95165

== ENCOUNTER 2025-06-03 14:28 | Outpatient (AMB) | payer OTHER, SELFPAY ==
--- OUTSIDE RECORDS SUMMARY | 2025-06-03 20:54 | XMS_ITS | Clinical Summary ---
Author Organization [address] [place] [address] [place] [phone] Phone Care Team Providers Care Continuous Towel Roller Name Role Phone Trent Dudley MD Primary Care Provider [phone] Allergies No known active allergies Medications albuterol [...] 8 (eight) hours as needed.Take 30 tablet 03/20/2025 Active irbesartan (Avapro) 75 mg tabletIndications :Primary hypertension Take 1 tablet (75 mg total) by mouth at bedtime. 30 each 5 04/29/2025 Active Active Problems Problem Noted Date Diagnosed Date BMI 39.0-39.9,adult 03/06/2025 History of atrial fibrillation 03/02/2024 Celiac disease 03/02/2024 Heart palpitations 03/02/2024 Obesity 03/02/2024 Sleep apnea 03/02/2024 Encounters Date Type Department Care Team Description 04/29/2025 10:00 AM EST Office Visit [facility] [address] [place] [phone] Trent Dudley MD Primary hypertension (Primary Dx) 04/29/2025 Telephone [facility] [address] [facility] [address] [place] [address] Korin Hernandez 03/06/2025 3:30 PM EDT Office Visit [facility] [address] [facility] [address] [place] [address] Trent Dudley MD Elevated blood pressure reading (Primary Dx); Physical exam from Last 3 Months Immunizations Immunization Administration Dates Next Due Moderna SARS-CoV-2 COVID-19, mRNA, LNP-S, preservative free 12/16/2020,11/18/2020 SARS-COV-2 (COVID-19) Vaccine, Unspecified 12/16,11/18/2020 Surgical History Surgery Date Site/Laterality Comments ATRIAL ABLATION SURGERY 2021 PROCEDURE:ATRIAL ABLATION SURGERY NASAL POLYP SURGERY PROCEDURE:NASAL POLYP SURGERY Medical History Medical History Date Comments A-fib ([facility] V24, [facility] V28) DX:A-fib ([facility]) Allergic DX:Allergic Asthma DX:Asthma EtOH dependence ([facility] V24 , [facility] V28) 06/20/2012 DX:EtOH dependence ([facility]);COM MENT:quit cold turkey Celiac disease repeat testing [...] Never Smokeless Tobacco: Never Tobacco Cessation:Counseling Given: No Alcohol Use Standard Drinks/Week Comments Not Currently 0 (1 standard drink = 0.6 oz pure alcohol) 2013 quit, prior heavy etoh use Sex and Gender Information Value Date Recorded Sex Assigned at Not on file Legal Sex Male 8:44 AM EST Gender Identity Not on file Sexual Orientation Not on file Last Filed Vital Signs Vital Sign Reading Time Taken Comments Blood Pressure 135/96 04/29/2025 10:09 AM EST Pulse 87 04/29/2025 10:07 AM EST Temperature 36.3 C (97.3 F) 04/29/2025 10:07 AM EST Respiratory Rate 16 04/29/2025 10:07 AM EST Oxygen Saturation 92% 04/29/2025 10:07 AM EST Inhaled Oxygen Concentration - - Weight 125 kg (275 lb) 04/29/2025 10:07 AM EST w ith shoes Height 175.3 cm (5' 9 ) 04/29/2025 10:07 AM EST Body Mass Index 40.61 04/29/2025 10:07 AM EST Plan of Treatment Upcoming Encounters Date Type Department Care Team (Late st Contact Info) Description 07/15/2025 4:15 PM EST Office Visit [facility] [address] [facility] [address] [place] [address] Trent Dudley MD [address] [facility] [address] [place] [address] Health Maintenance Due Date Last Done Comments DTaP,Tdap,and Td Vaccines (1 - Tdap) 1991 Hepatitis B Vaccines (1 of 3 - 19+ 3-dose series) 1991 RSV Immunization Adult Patients (1 - Risk 50-74 years 1-dose series) 2022 HIV Screening 03/02/2024 Social Influencers of Health Screening 03/02/2024 Hypertension/CHF/CAD Annual BMP Blood Test 03/08/2026 03/08/2025, 02/16/2024, 02/03/2022, Additional history exists Cholesterol Screening (Lipid Panel) 03/08/2030 03/08/2025, 02/16/2024, 02/14/2024 Colorectal Cancer Screening: Colonoscopy 02/19/2034 02/20/2024, 02/20/2024 COVID-19 Vaccine Discontinued 12/16/2020, , 11/18/2020, Additional [...] EDT Elevated blood pressure reading Physical exam HEPATITIS C SCREENING Routine 02/16/2024 STOOL BASED TEST Routine 02/13/2024 from Last 3 Months or Most Recently Relevant to Health Maintenance Results * (ABNORMAL) Lipid panel with reflex to direct LDL (03/08/2025 11:09 AM EDT) Cholesterol Total 224(H) <200 mg/dL [facility] HDL Cholesterol 38(L) > OR = 40 mg/dL [facility] Triglycerides 156(H) <150 mg/dL [facility] LDL Cholesterol 157(H) mg/dL (calc) [facility] Comment: Reference range: <100 Desirable range <100 mg/dL for primary prevention; <70 mg/dL for patients with CHD or diabetic patients with > or = 2 CHD risk factors. LDL-C is now calculated using the Suresh calculation, which is a validated novel method providing better accuracy than the Friedewald equation in the estimation of LDL-C. Dillon CHAVARRIA et al. POONAM. 2013;310(19): 6685-4136 (http://education.REAL SAMURAI/faq/EAW096) Chol/HDLC Ratio 5.9(H) <5.0 (calc) [facility] Non HDL Cholesterol 186(H) <130 mg/dL (calc) [facility] Comment: For patients with diabetes plus 1 major ASCVD risk factor, treating to a non-HDL-C goal of <100 mg/dL (LDL-C of <70 mg/dL) is considered a therapeutic option. Blood Venous blood specimen / Unknown 03/08/2025 11:09 AM EDT 03/08/2025 11:09 AM EDT [employer] ([facility]) - 03/09/2025 9:36 AM EDT FASTING:YES FASTING: YES Trent Dudley MD LAB BLOOD ORDERABLES Final Re sult Performing Organization Address [facility] Co de Phone Number [employer] [facility] ([facility]) [employer] [address] [place] [phone] * Thyroid stimulating hormone with reflex free T4 (03/08/2025 11:09 AM EDT) Thyroid Stimulating Hormone (Reflex FT4) 2.71 0.40 - 4.50 mIU/L [facility] Blood Venous blood specimen / Unknown 03/08/2025 11:09 AM EDT 03/08/2025 11:09 AM EDT [facility] ([place]) - 03/09/2025 9:36 AM EDT FASTING:YES FASTING: YES us Trent Dudley MD LAB BLOOD ORDERABLES Final Re sult [employer] [facility] ([facility]) [facility] [address] [place] [phone] * Hemoglobin A1c (03/08/2025 11:09 AM EDT) Pathologist [facility] Hemoglobin A1C 5.5 <5.7 % [facility] Comment: For the purpose of screening for the presence of diabetes: <5.7% Consistent with the absence of diabetes 5.7-6.4% Consistent with increased risk for diabetes (prediabetes) > or =6.5% Consistent with diabetes This assay result is consistent with a decreased risk of diabetes. Currently, no consensus exists regarding use of hemoglobin A1c for diagnosis of diabetes in children. According to [place] Diabetes Association (ADA) guidelines, hemoglobin A1c <7.0% represents optimal control in non- diabetic patients. Different metrics may apply to specific patient populations. Standards of Medical Care in Diabetes(ADA). Blood Venous blood specimen / Unknown 03/08/2025 11:09 AM EDT 03/08/2025 11:09 AM EDT Narrative [facility] - 03/09/2025 9:36 AM EDT FASTING:YES FASTING: YES Trent Dudley MD LAB BLOOD ORDERABLES Final Re sult [facility] ([facility]) [facility] [address] [place] [phone] * Basic metabolic panel (03/08/2025 11:09 AM EDT) Pathologist [facility] Glucose 86 65 - 99 mg/dL [facility] Comment: Fasting reference interval Urea Nitrogen (BUN) 16 7 - 25 mg/dL [facility] Creatinine 1.05 0.70 - 1.30 mg/dL [facility] eGFR 85 > OR = 60 mL/min/1. 73m2 [facility] BUN/Creatinine Ratio SEE NOTE: 6 22 (calc) [facility] Comment: Not Reported: BUN and Creatinine are within reference range. Sodium 139 135 - 146 mmol/L [facility] [employer] Potassium 4.3 3.5 - 5.3 mmol/L [facility] Chloride 106 98 - 110 mmol/L [facility] [employer] Carbon Dioxide 23 20 - 32 mmol/L [facility] [employer] Calcium 9.0 8.6 - 10.3 mg/dL [facility] Blood Venous blood specimen / Unknown 03/08/2025 11:09 AM EDT 03/08/2025 11:09 AM EDT [facility]ative [facility] - 03/09/2025 9:36 AM EDT FASTING:YES FASTING: YES Trent Dudley MD LAB BLOOD ORDERABLES Final Re sult [facility] ([place]) [facility] [address] [place] [phone] * Hepatitis C Screening (02/16/2024) [facility] Hepatitis C Screening abstracted Historical Provider HEALTH MAINTENANCE Final Result * Stool Based Tests (FOBT/FIT) (02/13/2024) [facility] Colorectal Cancer Screening: Stool Based Tests normal, abstracted Historical Provider HEALTH MAINTENANCE Final Result from Last 3 Months or Most Recently Relevant to Health Maintenance Insurance JANEL CHRISTOPHER [id number] Care Teams Continuous Towel Roller Relationship Specialty Start Date End Date Trent Dudley MD [address] [address] PCP - General Family Medicine 09/18/24
--- OUTSIDE RECORDS SUMMARY | 2025-06-03 20:54 | XMS_ITS | Clinical Summary ---
Author Organization [facility] Address [address] [place] [address] Care Team Providers Care Jelly Maker Name Role Phone Unavailable Primary Care Provider [...] patient's age to complete this topic Insurance [facility] OPEN ACCESS
--- OUTSIDE RECORDS SUMMARY | 2025-06-03 20:54 | XMS_ITS | Clinical Summary ---
Author Organization [facility] Prior to 11/17/[address] [place] [address] Care Team Providers Care Gun Stocker Name Role Phone Trent Dudley MD Primary Care Provider Unavai lable Allergies Active Allergy Reactions Criticality Noted [...] age to complete this topic Care Teams Gun Stocker Relationship Specialty Start Date End Date Trent Dudley MD PCP - General Family Medicine 02/13/24
--- OUTSIDE RECORDS SUMMARY | 2025-06-03 20:54 | XMS_ITS | Encounter Summary ---
Author Organization [facility] Address [address] [place] [address] Care Team Providers Care Pipelines Laborer Name Role Phone Aaron Hamilton MD Primary Care Provider Ari Aguillon MD Unavailable Zion Isbell MD Unavailable [phone] Zion Isbell MD Unavailable [phone] Encounter Details Date Type Department Care Team (Late st Contact Info) Description 09/25/2021 Scanned Document [address] [address] Social History Tobacco Use Types Packs/Day Years [...] on filedocumented in this encounter Care Teams Pipelines Laborer Relationship Specialty Start Date End Date Aaron Hamilton MD [address] [place] [address] PCP - General 09/04/21 Ari Aguillon MD [address] [place] [address] Cardiovascular Disease 12/14/21 Zion Isbell MD [address] [address] Cardiovascular Disease 03/10/22 Zion Isbell MD [address] [address] Primary Blade Groover Cardiovascular Disease 08/11/23 documented as of this encounter
--- OUTSIDE RECORDS SUMMARY | 2025-06-03 20:54 | XMS_ITS | Encounter Summary ---
Author Organization [address] [address] Care Team Providers Care Content Administrator Name Role Phone Aaron Hamilton MD Primary Care Provider [phone] Ari Aguillon MD Unavailable Zion Isbell MD Unavailable [phone] Zion Isbell MD Unavailable [phone] Encounter Details Date Type Department Care Team (Late st Contact Info) Description 11/30/2021 Scanned Document [facility] Cardiology [address] [place] [id number] Zion Isbell MD [address] [place] [address] [place] [address] Social History Tobacco Use Types Packs/Day Years [...] on filedocumented in this encounter Care Teams Content Administrator Relationship Specialty Start Date End Date Aaron Hamilton MD [address] [address] PCP - General 09/04/21 Ari Aguillon MD [address] [place] [address] Cardiovascular Disease 12/14/21 Zion Isbell MD [address] [address] Cardiovascular Disease 03/10/22 Zion Isbell MD [address] [address] Primary Process Equipment Operator Cardiovascular Disease 08/11/23 documented as of this encounter
--- OUTSIDE RECORDS SUMMARY | 2025-06-03 20:54 | XMS_ITS | Clinical Summary ---
Author Organization Formerly [facility] Address [address] [place] [address] Care Team Providers Care Fluorescent Solution Mixer Name Role Phone Aaron Hamilton MD Primary Care Provider [phone] Ari Aguillon MD Unavailable Zion Isbell MD Unavailable [phone] Zion Isbell MD Unavailable [phone] Allergies Active Allergy Reactions Criticality Noted Date [...] more drinks on one occasion? Never 02/05/2022 [facility] - Occupational [...] 01/18/2025 COVID-19 Vaccine ( season) 2025, 11/18/2020 RSV Vaccine 50 years and old er and Patients (1 - 1-dose 75+ series) 2047 Insurance [facility] Advance Directives * Full Code (Latest Code Status on File) Date Activated Date Inactivated Comments 02/05/2022 3:02 PM Care Teams Fluorescent Solution Mixer Relationship Specialty Start Date End Date Aaron Hamilton MD [address] [place] [address] PCP - General 09/04/21 Ari Aguillon MD [address] [place] [address] Cardiovascular Disease 12/14/21 Zion Isbell MD [address] [place] [address] Cardiovascular Disease 03/10/22 Zion Isbell MD [address] [place] [address] Primary Hair Boiler Cardiovascular Disease 08/11/23
--- OUTSIDE RECORDS SUMMARY | 2025-06-03 20:54 | XMS_ITS | Encounter Summary ---
Author Organization [facility] Address [address] [place] [address] Care Team Providers Care Front Desk Administrator Name Role Phone Aaron Hamilton MD Primary Care Provider [phone] Ari Aguillon MD Unavailable Zion Isbell MD Unavailable [phone] Zion Isbell MD Unavailable [phone] Encounter Details Date Type Department Care Team (Late st Contact Info) Description 02/05/2022 Prep for Surgery [facility] Heart & Vascular [facility] - Electrophysiology [address] [facility] [address] [place] [address] Lisa Sosa, TABLE COVER FOLDER [address] [address] Social History Tobacco Use Types [...] as of this encounter Functional Status * Question Answer Date of Assessment Author AUDIT-C Total Score - Male 0 02/05/2022 11: 00 AM EDT Layne Fagan RN * AUDIT-C Score Answer Date of Assessment Author 0 [...] 02/05/2022 11:00 AM EDT Layne Fagan RN * Level of Risk per Screen Answer Date of Assessment Author Low Risk 02/05/2022 11:00 AM EDT Layne Abdi RN documented as of this encounter Plan of Treatment Not on file documented as of this encounter Visit Diagnoses Not on filedocumented in this encounter Care Teams Front Desk Administrator Relationship Specialty Start Date End Date Aaron Hamilton MD [address] [place] [address] PCP - General 09/04/21 Ari Aguillon MD [address] [place] [address] Cardiovascular Disease 12/14/21 Zion Isbell MD [address] [address] Cardiovascular Disease 03/10/22 Zion Isbell MD [address] [place] [address] Primary Manager Code Cardiovascular Disease 08/11/23 documented as of this encounter
== END 2025-06-03 14:43 | disposition home or self-care (01) ==
LOC: HO.HMGAL 14:28
PROVIDERS: PCP Student in an Organized Health Care Education/Training Program; Visit Provider Registered Nurse Emergency
DX: J30.89 Other allergic rhinitis (principal)
CPT/HCPCS: 95117; 95165